=== PATIENT | male | born 1950 | race Caucasian/White ===

== ENCOUNTER → 2016-08-31 | Outpatient (CLI) | payer BC ==
[~2016-08-31] MED LIST: ANT25 PO; ASCA500 PO; B-COTAB18 PO; CHOL100010 PO; MULTTAB58 PO; PANT40TA PO; SNG10; TAMS0.4C59 PO; TESTOSTERONE INJ INJ
[2016-08-31 13:00] LABS: BASO % 0.3 %; BASO ABS # 0.02 K/uL (0-0.2); EOS % 2.8 %; HEMATOCRIT 39.8 % (42-52); IG% 0.3 %; LYMPH % 23.3 %; LYMPH ABS # 1.35 K/uL (1.2-3.4); MEAN CELL VOLUME 61.7 fL (80-100); MEAN CORPUSCULAR HEMOGLOBIN 20.6 pg (25-34); MEAN CORPUSCULAR HGB CONC 33.4 g/dl (32-36); MONO % 8.8 %; NEUT % 64.5 %; PLATELET COUNT 202 K/uL (130-400); RED BLOOD COUNT 6.45 M/uL (4.7-6.1); WHITE BLOOD COUNT 5.79 K/uL (4.8-10.8)
[2016-08-31 13:13] LABS: ALT/SGPT 47 U/L (12-78); AST/SGOT 23 U/L (15-37); BLOOD UREA NITROGEN 17 mg/dl (7-18); BUN/CREATININE RATIO 17.2 (10-20); CALCIUM 9.2 mg/dl (8.5-10.1); CARBON DIOXIDE 27 mmol/L (21-32); CHLORIDE 105 mmol/L (98-107); CHOLESTEROL 233 mg/dl (0-200); CREATININE 0.97 mg/dl (0.60-1.40); GLUCOSE 101 mg/dl (70-99); MAGNESIUM 2.2 mg/dl (1.8-2.4); PHOSPHORUS 2.7 mg/dl (2.5-4.9); POTASSIUM 4.1 mmol/L (3.5-5.1); SODIUM 140 mmol/L (136-145); TRIGLYCERIDES 137 mg/dl (0-150); URIC ACID 6.6 mg/dl (2.6-7.2); VERY LOW DENSITY LIPOPROT CALC 27 mg/dl
[2016-08-31 13:15] LABS: ESTIMATED AVERAGE GLUCOSE 114 mg/dl; HA1C FLAG Normal (Normal)
[2016-08-31 13:24] LABS: ALB/GLOB RATIO 1.1 (0.9-2); ALKALINE PHOSPHATASE 65 U/L (45-117); CHOLESTEROL/HDL RATIO 4.1; HDL CHOLESTEROL 57 mg/dl; LDL CHOLESTEROL CALCULATED 149 mg/dl
[2016-08-31 13:46] LABS: COMPLETE YES; MICROCYTOSIS PRESENT
[2016-09-03 13:29] LABS: C-REACTIVE PROT HIGHSEN 1.8 MG/L
== END | disposition home or self-care (01) ==
LOC: C.LAB 10:54
PROVIDERS: ATTEND Family Medicine
DX: K21.9 Gastro-esophageal reflux disease without esophagitis (principal); I35.0 Nonrheumatic aortic (valve) stenosis; E29.1 Testicular hypofunction; R73.09 Other abnormal glucose; E55.9 Vitamin D deficiency, unspecified; D51.9 Vitamin B12 deficiency anemia, unspecified

== ENCOUNTER → 2016-09-29 | Outpatient (CLI) | payer BC ==
--- NOTE | 2016-09-29 17:32 | EXERCISE STRESS ECHO ---
*NOTICE TO RECEIVING CONSTITUTION PARTY AGENCY This information is strictly Confidential and protected under [place] law. [place] law prohibits you from making any further disclosure of this information unless further disclosure is expressly permitted by the written consent of the person to whom it pertains or is authorized by law. A general authorization for the release of medical or other information is not sufficient for this purpose. Hospital accepts no responsibility if the information is made available to any other person, INCLUDING THE PATIENT. Interpretation Summary * Name: GIOVANNI HINDS Study Date: 09/29/2016 10:03 AM BP: 132/83 mmHg * Patient Location: [facility] HR: 60 * : 1950 (M/d/yyyy) Gender: Male Height: 660 in * Age: 66 yrs Ethnicity: [place] Weight: 160 lb * Ordering Physician: Leodan Gaitan * Referring Physician: Leodan Gaitan * Performed By: Jose Juan Lee RCS * * Reason For Study: Aortic Stenosis * BSA: 9.7 m2 * -- Conclusions -- * Left ventricular systolic function is normal. * Grade I diastolic dysfunction, (abnormal relaxation pattern). * There is mild mitral regurgitation. * Right ventricular systolic pressure is normal. * Diagnostic exercise echocardiogram without inducible ischemia. * When compared to an echocardiogram performed 15 months ago, no change Procedure Details * ECHOEX, CPT #[id number] * ECHO COLOR FLOW, CPT #[id number] * ECHO DOPPLER, CPT #[id number] Left Ventricle * The left ventricle is normal in size. * There is normal left ventricular wall thickness. * Ejection Fraction = 55-60%. * Left ventricular systolic function is normal. * Grade I diastolic dysfunction, (abnormal relaxation pattern). * The left ventricular wall motion is normal. Right Ventricle * The right ventricle is normal in size and function. Atria * The left atrial size is normal. * Right atrial size is normal. Mitral Valve * The mitral valve is grossly normal. * There is mild mitral regurgitation. Tricuspid Valve * The tricuspid valve is not well visualized, but is grossly normal. * There is trace tricuspid regurgitation. * Right ventricular systolic pressure is normal. Aortic Valve * Aortic valve sclerosis moderate, without significant aortic valvular stenosis. * No hemodynamically significant valvular aortic stenosis. * There is no significant aortic regurgitation. Pericardium * There is no pericardial effusion. Stress Parameters * The stress portion of this study was personally supervised by the undersigned interpreting physician. * Rest heart rate was '60' BPM. * Rest blood pressure was '132/83' * Maximum heart rate achieved was 144 bpm. * Maximum heart rate was 94 % of maximum age-predicted heart rate. * Maximum blood pressure was '182/80' * Total exercise time was '9:00' * Maximum exercise MET level achieved was '10.1' METS * Maximum treadmill speed was '3.4' miles per hour. * Maximum treadmill elevation was '14'% grade. * Exercise was terminated due to 'achieving target heart rate' * Normal blood pressure response to exercise. Left Ventricular Findings with Stress * Patient exercised for 9 minutes. Normal EKG at baseline without ischemic changes during test. Normal baseline echocardiogram without inducible wall motion abnormalities. No symptoms during the study Normal BP response. Flores treadmill score: 9 (low risk) MMode 2D Measurements and Calculations IVSd 0.93 cm IVSs 1.3 cm LVIDd 4.3 cm LVIDs 3.0 cm LVPWd 1.0 cm LVPWs 1.6 cm IVS/LVPW 0.89 FS 30.6 % EDV(Teich) 81.5 ml ESV(Teich) 33.8 ml EF(Teich) 58.5 % EDV(cubed) 77.6 ml ESV(cubed) 25.9 ml EF(cubed) 66.6 % % IVS thick 40.7 % % LVPW thick 54.4 % LV mass(C)d 138.4 grams LV mass(C)dI 14.3 grams/m\S\2 LV mass(C)s 148.5 grams LV mass(C)sI 15.4 grams/m\S\2 CO(Teich) 2.7 l/min CI(Teich) 0.28 l/min/m\S\2 SV(Teich) 47.6 ml SI(Teich) 4.9 ml/m\S\2 CO(cubed) 2.9 l/min CI(cubed) 0.30 l/min/m\S\2 SV(cubed) 51.7 ml SI(cubed) 5.4 ml/m\S\2 Ao root diam 3.2 cm Ao root area 8.0 cm\S\2 ACS 1.2 cm LA dimension 3.9 cm LA/Ao 1.2 LVOT diam 2.0 cm LVOT area 3.1 cm\S\2 LVAd ap4 31.4 cm\S\2 LVLd ap4 8.6 cm EDV(MOD-sp4) 94.0 ml LVAs ap4 17.5 cm\S\2 LVLs ap4 6.7 cm ESV(MOD-sp4) 39.0 ml EF(MOD-sp4) 58.5 % LVAd ap2 26.8 cm\S\2 LVLd ap2 7.6 cm EDV(MOD-sp2) 79.0 ml LVAs ap2 15.2 cm\S\2 LVLs ap2 6.3 cm ESV(MOD-sp2) 33.0 ml EF(MOD-sp2) 58.2 % CO(MOD-sp4) 3.1 l/min CI(MOD-sp4) 0.32 l/min/m\S\2 SV(MOD-sp4) 55.0 ml SI(MOD-sp4) 5.7 ml/m\S\2 CO(MOD-sp2) 2.6 l/min CI(MOD-sp2) 0.27 l/min/m\S\2 SV(MOD-sp2) 46.0 ml SI(MOD-sp2) 4.8 ml/m\S\2 Doppler Measurements and Calculations MV E max mary 85.4 cm/sec MV A max mary 112.5 cm/sec MV E/A 0.76 MV P1/2t max mary 86.3 cm/sec MV P1/2t 71.6 msec MVA(P1/2t) 3.1 cm\S\2 MV dec slope 352.8 cm/sec\S\2 MV dec time 0.27 sec Ao V2 max 224.3 cm/sec Ao max PG 20.2 mmHg Ao max PG (full) 14.1 mmHg Ao V2 mean 138.0 cm/sec Ao mean PG 9.0 mmHg Ao mean PG (full) 6.1 mmHg Ao V2 VTI 43.1 cm JUS(I,A) 1.8 cm\S\2 JUS(I,D) 1.8 cm\S\2 JUS(V,A) 1.7 cm\S\2 JUS(V,D) 1.7 cm\S\2 LV V1 max PG 6.1 mmHg LV V1 mean PG 2.9 mmHg LV V1 max 123.4 cm/sec LV V1 mean 79.2 cm/sec LV V1 VTI 25.7 cm SV(Ao) 343.7 ml SI(Ao) 35.6 ml/m\S\2 SV(LVOT) 78.3 ml SI(LVOT) 8.1 ml/m\S\2 PA V2 max 114.5 cm/sec PA max PG 5.2 mmHg PI max mary 140.1 cm/sec PI max PG 7.8 mmHg PI dec slope 116.2 cm/sec\S\2 PI P1/2t 353.0 msec TR max mary 228.1 cm/sec
== END | disposition home or self-care (01) ==
LOC: C.CPL 09:12
PROVIDERS: ATTEND Family Medicine
DX: I35.0 Nonrheumatic aortic (valve) stenosis (principal)